=== PATIENT | male | born 1945 | race American Indian/Alaskan Native ===

== ENCOUNTER 2017-05-10 08:47 | Day surgery (SDC) | payer MEDICARE ==
[~2017-05-10 08:47] MED LIST: ANCEF/STERILE WATER 2 GM/20 ML 2 GM/20 ML SYRINGE IV NR; NACL 0.9% 1000 ML 1,000 ML IV SCH
[2017-05-10] MEDS ORDERED: PEPCID IV NR (09:31)
[2017-05-10] MEDS ORDERED: DILAUDID IV PRN (09:32)
[2017-05-10] MEDS ORDERED: NACL BACTERIOSTATIC INFILTRATI ONE (09:38)
[2017-05-10] MEDS ORDERED: NEO SYNEPHRINE/NS Syringe(OR USE) IV ONE (10:00)
[2017-05-10] MEDS ORDERED: ZOFRAN IV PRN (10:00)
[2017-05-10 10:04] LABS: Basophils % (Auto) 1.2 % (0.0-1.8); Eosinophils % (Auto) 7.7 % (0.0-4.3); Hematocrit 36.2 % (35.5-45.6); Hemoglobin 11.7 gm/dl (11.8-15.2); Mean Corpuscular HGB Conc 32 % (32-34); Mean Corpuscular Hemoglobin 29 pg (28-32); Mean Corpuscular Volume 90 fl (84-94); Platelet Count 167 K/mm3 (140-440); Red Blood Count 4.02 M/mm3 (3.65-5.03); Red Cell Distribution Width 19.1 % (13.2-15.2)
[2017-05-10 10:15] LABS: BUN/Creatinine Ratio 6.66; Calcium 7.2 mg/dL (8.4-10.2); Chloride 100.6 mmol/L (98-107); Potassium 4.8 mmol/L (3.6-5.0)
[2017-05-10] MEDS ORDERED: HEPARIN 10,000 UNITS/10 ML ONE (10:31)
[2017-05-10] MEDS ORDERED: MARCAINE 0.5% INFILTRATI ONE ×2 (10:32→11:21)
[2017-05-10] MEDS ORDERED: NACL 0.9% 500 ML 500 ML ONE (10:32)
[2017-05-10] MEDS ORDERED: XYLOCAINE 1%/ EPI 1:100,000 INFILTRATI ONE ×2 (10:33→11:21)
[2017-05-10] MEDS ORDERED: SODIUM BICARBONATE ONE (10:33)
[2017-05-10] MEDS ORDERED: NACL 0.9% 250ML 250 ML ONE (10:34)
--- NOTE | 2017-05-10 10:54 | Anesthesia Consultation ---
Anesthesia Consult and Med Hx Date of service: 05/10/17 - Airway Anesthetic Teeth Evaluation: Edentulous (upper) ROM Head & Neck: Adequate Mental/Hyoid Distance: Adequate Mallampati Class: Class II Intubation Access Assessment: Probably Good - Pulmonary Exam CTA: Yes - Cardiac Exam Cardiac Exam: RRR - Pre-Operative Health Status ASA Pre-Surgery Classification: ASA3 Proposed Anesthetic Plan: General - Pulmonary Hx Smoking: Yes - Cardiovascular System Hx Hypertension: Yes (x 18 yrs) Hx Coronary Artery Disease: Yes Hx Heart Attack/AMI: Yes (2017) Hx Angina: No Hx Percutaneous Transluminal Coronary Angioplasty (PTCA): Yes (2017) Hx Cardia Arrhythmia: Yes (hx afib, junctional) Hx Heart Murmur: Yes - Gastrointestinal Hx Gastroesophageal Reflux Disease: Yes (controlled) - Endocrine Hx End Stage Renal Disease: Yes - Additional Comments Anesthesia Medical History Comments: syncope episode
[2017-05-10] MEDS ORDERED: DIPRIVAN 10 MG/ML IV ONE ×4 (10:56→13:00)
[2017-05-10] MEDS ORDERED: DILAUDID ONE (10:56)
--- NOTE | 2017-05-10 11:00 | Anesthesia Day of Surgery ---
Anesthesia Day of Surgery - Day of Surgery Patient Examined: Yes Patient H&P Reviewed: Yes Patient is NPO: Yes
[2017-05-10] MEDS ORDERED: NACL 0.9% IR ONE (11:21)
[2017-05-10] MEDS ORDERED: SODIUM BICARBONATE IV ONE (11:21)
[2017-05-10] MEDS ORDERED: VERSED ONE (11:46)
[2017-05-10] MEDS ORDERED: HEPARIN 10,000 UNITS/10 ML 1,000 UNIT in NACL 0.9% 250ML 250 ML IR ONE (11:47)
[2017-05-10] MEDS ORDERED: KETALAR ONE (11:52)
[2017-05-10] MEDS ORDERED: XYLOCAINE MPF 2% ONE (12:08)
--- NOTE | 2017-05-10 13:56 | Post Operative Note ---
Pre-op diagnosis: thrombosed avf, ESRD Post-op diagnosis: same Findings: good thrill and bruit in new AVF,palpable radial pulse Procedure: Creation of transposed forearm brachial- basilic AVF, left arm Anesthesia: MAC Surgeon: ANJUM ALVAREZ Estimated blood loss: minimal Pathology: none Condition: stable Disposition: same day
--- NOTE | 2017-05-10 14:00 | Short Stay Summary ---
Short Stay Documentation Date of service: 05/10/17 Narrative H&P: admitted to OR for out patient creation of AVF left larm - History Principal diagnosis: Thrombosed AVF, ESRD on dialysis H&P: obtained from office - Allergies and Medications Current Medications: Allergies codeine Allergy (Verified 05/09/17 10:11) Unknown Home Medications Medication Instructions Recorded Confirmed Last Taken Type Aspirin [Adult Low Dose Aspirin EC] 81 mg PO DAILY 05/09/17 05/10/17 05/09/17 History AtorvaSTATin [Lipitor] 80 mg PO QHS 05/09/17 05/10/17 05/08/17 History Budesoni/Formotero 160-4.5(Nf) 2 puff IH BID 05/09/17 05/10/17 04/05/17 History [Symbicort 160-4.5 (Nf)] Clopidogrel Bisulfate [Plavix] 75 mg PO DAILY 05/09/17 05/10/17 05/09/17 History Furosemide [Lasix TAB] 40 mg PO QDAY 05/09/17 05/10/17 05/09/17 History Losartan [Cozaar] 25 mg PO QDAY 05/09/17 05/10/17 05/09/17 11:30 History Nitroglycerin [Nitrostat] 0.4 mg SL Q5M PRN 05/09/17 05/09/17 Unknown History Pantoprazole [Protonix] 40 mg PO QDAY 05/09/17 05/10/17 05/09/17 History Active Medications Famotidine (Pepcid) 20 mg IV PREOP NR Stop: 05/10/17 15:00 Last Admin: 05/10/17 09:55 Dose: 20 mg Hydromorphone HCl (Dilaudid) 0.25 mg IV Q10MIN PRN PRN Reason: Pain, Moderate (4-6) Stop: 05/10/17 15:00 Cefazolin Sodium (Ancef/Sterile Water 2 Gm/20 Ml) 2 gm in 20 mls @ 80 mls/hr IV PREOP NR PRN Reason: Protocol Stop: 05/10/17 21:00 Sodium Chloride (Nacl 0.9% 1000 Ml) 1,000 mls @ 42 mls/hr IV DIRECT MARY Last Admin: 05/10/17 09:50 Dose: 42 mls/hr - Brief post op/procedure progress note Date of procedure: 05/10/17 Pre-op diagnosis: ESRD Post-op diagnosis: same Procedure: creation of transposed forearm brachial basilic avf, left arm Anesthesia: MAC Findings: good thrill in avf, palpabel radial pulse Estimated blood loss: minimal Pathology: none Condition: stable - Hospital course Hospital course: benign - Disposition Condition at discharge: Good Disposition: DC-01 TO HOME OR SELFCARE - Discharge Diagnoses (1) 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
--- NOTE | 2017-05-10 14:59 | Post Anesthesia Evaluation ---
- Post Anesthesia Evaluation Patient Participated: Yes Airway Patent: Yes Stable Respiratory Function: Yes Nausea/Vomiting: No Temp > 96.8F: Yes Pain Manageable: Yes Adequeate Hydration: Yes Anesthesia Complications: No Block Receding Appropriately: Not Applicable Patient on Ventilator: No
[2017-05-10 19:19] VITALS: BP 140/72
--- NOTE | 2017-05-10 19:32 | Operative Report ---
PREOPERATIVE DIAGNOSES: Thrombosed hemodialysis access fistula, end-stage renal disease requiring hemodialysis. POSTOPERATIVE DIAGNOSES: Thrombosed hemodialysis access fistula, end-stage renal disease requiring hemodialysis. OPERATIVE PROCEDURE: Creation of forearm transposed brachiobasilic AV fistula left arm. SURGEON: Hood Perez M.D. HAND ASSEMBLER FOR PULLER OVER: None. ANESTHESIA: Local MAC. ESTIMATED BLOOD LOSS: Minimal. COMPLICATIONS: None. INSTRUMENT COUNTS: Correct. SPECIMENS: None. IMPLANTS: None. FINDINGS: Adequate inflow via brachial artery. Proximal takeoff of radial artery resulting in protection of hand perfusion. Fistula of good quality with good thrill and bruit. SURGICAL DETAILS: The patient was in supine position with the left arm extended. The entire extremity was then prepped and draped using standard sterile technique. I previously had used the ultrasound and with a tourniquet on the arm had mapped out the course of the cephalic and basilic vein. The cephalic was a suboptimal choice due to size and previous utilization as a fistula. I then anesthetized the skin overlying the brachial artery. It was noted that there was an proximal takeoff of the radial artery and that would protect the hand from steal syndrome. The dissection was carried down sharply through subcutaneous tissue and the proximal forearm through a longitudinal incision made through anesthetized skin. The fascia was incised and the brachial artery was identified and mobilized and encircled using vessel loops. I did identify the radial artery and preserved it. Attention was then turned to the medial aspect of the arm where the basilic vein was located and soft tissue. Skin overlying this was incised longitudinally again through anesthetized skin and dissection was deepened and the vein was mobilized proximally and distally for an appropriate length. I then divided distally and hydro-dilated and confirmed that the vein would be of good quality for fistula. I then created a subcutaneous tunnel between the two incisions after mobilizing the vein proximally to the antecubital fossa. I then tunneled between the two incisions using an angled [place] and brought the vein through in a nonrotational fashion. The distal limb was then prepared as a Carrel patch using a side branch and the length was confirmed. I then occluded the brachial artery and made a generous longitudinal incision. I was able to make a slightly larger incision than normal because of the aberrant takeoff of the radial artery protected the hand from steal. I then created an end-to-side anastomosis using 6-0 Prolene suture in running technique. Prior to completion of the suture line, antegrade and retrograde flushing was performed. The suture line was then released retrograde into the access and then antegrade. The fistula developed a very nice thrill and bruit. Hand perfusion was normal via palpable radial pulse. I then obtained hemostasis using counterpressure and electrocautery. The incisions were blocked with Marcaine 0.5% plain and then the incisions were closed using 3-0 Vicryl subcutaneous and 4-0 Monocryl subcuticular. Skin was sealed with Dermabond. The patient was then returned to the recovery area in stable condition having tolerated the procedure well. Sponge and needle counts were correct. A good thrill and bruit was noted in the fistula. JOB# [id number] SUZAN/ALMA ROSA
== END 2017-05-10 16:00 | disposition home or self-care (01) ==
LOC: OR 08:47
PROVIDERS: ATTEND Surgery Vascular Surgery
DX: T82.868A Thrombosis due to vascular prosthetic devices, implants and grafts, initial encounter (principal); I12.0 Hypertensive chronic kidney disease with stage 5 chronic kidney disease or end stage renal disease; N18.6 End stage renal disease; I25.10 Atherosclerotic heart disease of native coronary artery without angina pectoris; I25.2 Old myocardial infarction; E78.5 Hyperlipidemia, unspecified; I48.91 Unspecified atrial fibrillation; K21.9 Gastro-esophageal reflux disease without esophagitis; F17.200 Nicotine dependence, unspecified, uncomplicated; Z99.2 Dependence on renal dialysis; Z88.5 Allergy status to narcotic agent; Z79.899 Other long term (current) drug therapy; Z79.82 Long term (current) use of aspirin; Z95.5 Presence of coronary angioplasty implant and graft; Z98.890 Other specified postprocedural states; Y83.2 Surgical operation with anastomosis, bypass or graft as the cause of abnormal reaction of the patient, or of later complication, without mention of misadventure at the time of the procedure
CPT/HCPCS: 36415; 36819; 80048; 85025; J0690; J1170; J1644; J2370; J2704; J7030; J7040; J7050; J2250

== ENCOUNTER 2017-08-17 06:24 | Day surgery (SDC) | payer MEDICARE ==
[2017-08-17] MEDS ORDERED: DIPRIVAN 10 MG/ML IV ONE (07:20)
[2017-08-17] MEDS ORDERED: XYLOCAINE MPF 2% ONE (07:20)
[2017-08-17] MEDS ORDERED: SUBLIMAZE ONE (07:20)
[2017-08-17] MEDS ORDERED: ZOFRAN ONE (07:20)
[2017-08-17] MEDS ORDERED: NACL BACTERIOSTATIC INFILTRATI ONE (07:30)
[2017-08-17] MEDS ORDERED: PROVENTIL IH NR (08:00)
--- NOTE | 2017-08-17 08:04 | Anesthesia Consultation ---
Anesthesia Consult and Med Hx - Airway Anesthetic Teeth Evaluation: Dentures ROM Head & Neck: Adequate Mental/Hyoid Distance: Adequate Mallampati Class: Class II Intubation Access Assessment: Probably Good - Pulmonary Exam CTA: No (exp wheeze, txt ordered ) - Cardiac Exam Cardiac Exam: RRR - Pre-Operative Health Status ASA Pre-Surgery Classification: ASA4 Proposed Anesthetic Plan: General, MAC - Pulmonary Hx Smoking: Yes COPD: Yes - Cardiovascular System Hx Hypertension: Yes (x 18 yrs) Hx Coronary Artery Disease: Yes Hx Heart Attack/AMI: Yes (2017) Hx Angina: No Hx Percutaneous Transluminal Coronary Angioplasty (PTCA): Yes (2017) Hx Cardia Arrhythmia: Yes (hx afib, junctional) Hx Heart Murmur: Yes - Gastrointestinal Hx Gastroesophageal Reflux Disease: Yes (controlled) - Endocrine Hx End Stage Renal Disease: Yes
[2017-08-17] MEDS ORDERED: PROVENTIL IH ONE (08:05)
--- NOTE | 2017-08-17 08:05 | Anesthesia Day of Surgery ---
Anesthesia Day of Surgery - Day of Surgery Patient Examined: Yes Patient H&P Reviewed: Yes Patient is NPO: Yes
[2017-08-17] MEDS ORDERED: NACL 0.9% 500 ML 500 ML ONE (08:10)
[2017-08-17] MEDS ORDERED: HEPARIN 10,000 UNITS/10 ML ONE (08:10)
[2017-08-17] MEDS ORDERED: MARCAINE 0.5% 30 ML INFILTRATI ONE (08:10)
[2017-08-17 08:19] LABS: Eosinophils % (Auto) 8.3 % (0.0-4.3); Hematocrit 36.8 % (35.5-45.6); Hemoglobin 12.2 gm/dl (11.8-15.2); Mean Corpuscular HGB Conc 33 % (32-34); Mean Corpuscular Hemoglobin 29 pg (28-32); Mean Corpuscular Volume 89 fl (84-94); Platelet Count 170 K/mm3 (140-440); Red Blood Count 4.15 M/mm3 (3.65-5.03); Red Cell Distribution Width 19.5 % (13.2-15.2); White Blood Count 9.8 K/mm3 (4.5-11.0)
[2017-08-17 08:29] LABS: Calcium 8.9 mg/dL (8.4-10.2); INR 0.96 (0.87-1.13); Potassium 4.5 mmol/L (3.6-5.0)
[2017-08-17] MEDS ORDERED: MORPHINE IV PRN (08:30)
[2017-08-17] MEDS ORDERED: ePHEDrine SULFATE ONE (08:54)
[2017-08-17] MEDS ORDERED: HEPARIN 10,000 UNITS/10 ML 2,000 UNIT in NACL 0.9% 500 ML 500 ML IR ONE (09:06)
[2017-08-17] MEDS ORDERED: XYLOCAINE 1%/ EPI 1:100,000 INFILTRATI ONE ×2 (09:34)
[2017-08-17] MEDS ORDERED: NACL 0.9% IR ONE (09:34)
[2017-08-17] MEDS ORDERED: MARCAINE 0.5% INFILTRATI ONE ×2 (09:34)
--- NOTE | 2017-08-17 11:37 | Operative Report ---
Operative Report Operative Report: Date of procedure: 08/17/2017 Pre-operative diagnosis: Mechanical complication of hemodialysis access ( AV fistula), end-stage renal disease on hemodialysis Post-operative diagnosis: Same Procedure name(s): ReVision of brachial basilic AV fistula left arm using elevation technique Surgeon: Hood Perez MD Locator Specialist: None Anesthesia: [General EBL: Minimal Specimen(s): None Complications: None Findings: Good Caliber AV fistula excellent thrill and bruit and fistula Procedure: Patient in the supine position with the left arm extended the entire extremity is prepped and draped using sterile technique. The AV fistula was easily palpable at the antecubital fossa. I made a longitudinal incision overlying the basilic vein just above the antecubital fossa and extended sequentially to the axilla. The incision was deepened until the basilic vein was identified. Care was taken to identify and preserve the muscular cutaneous nerve throughout its entire length. Once the vein was mobilized to the level of the axilla it was encircled using vessel loops it was retracted upward and freed from its vascular base. Side branches were ligated using 3-0 silk ties. The vein was then divided after vascular control was obtained using the beveled technique. I then removed the upper portion of the vessel from underneath the nerves flushed and dilated it with saline. A curved Dana-Wick tunneling device was then used to create the subdermal tunnel. The fistula was then attached to the tunneler and pulled back into the antecubital fossa portion of the incision in a non-rotational fashion. The vessel was then reanastomosed end to end using 6-0 Prolene suture. Prior to completion of the suture line antegrade and retrograde flushing was performed. The suture line was then completed and flow was released back to the fistula. The fistula developed an excellent thrill and bruit. Hemostasis was excellent. The incision was then blocked with Marcaine. The incision was then closed using 3-0 Vicryl subcutaneous 4-0 Monocryl subcuticular. The skin was then sealed using Dermabond equivalent. Patient was then extubated returned to the recovery room in stable condition having tolerated the procedure well. Sponge and needle counts were correct.
--- NOTE | 2017-08-17 11:44 | Short Stay Summary ---
Short Stay Documentation Date of service: 08/17/17 Narrative H&P: Patient admitted to the operative suite for outpatient revision of a brachial basilic fistula in the left arm - History H&P: obtained from office - Allergies and Medications Current Medications: Allergies codeine Allergy (Verified 08/14/17 08:16) Unknown Home Medications Medication Instructions Recorded Confirmed Last Taken Type Aspirin [Adult Low Dose Aspirin EC] 81 mg PO DAILY 05/09/17 08/14/17 05/09/17 History AtorvaSTATin [Lipitor] 80 mg PO QHS 05/09/17 08/14/17 05/08/17 History Budesoni/Formotero 160-4.5(Nf) 2 puff IH BID 05/09/17 08/14/17 04/05/17 History [Symbicort 160-4.5 (Nf)] Clopidogrel Bisulfate [Plavix] 75 mg PO DAILY 05/09/17 08/14/17 05/09/17 History Furosemide [Lasix TAB] 40 mg PO QDAY 05/09/17 08/14/17 05/09/17 History Losartan [Cozaar] 25 mg PO QDAY 05/09/17 08/14/17 05/09/17 11:30 History Nitroglycerin [Nitrostat] 0.4 mg SL Q5M PRN 05/09/17 08/14/17 Unknown History Pantoprazole [Protonix TAB] 40 mg PO QDAY 05/09/17 08/14/17 05/09/17 History HYDROcodone/APAP 7.5-325 [[place] 1 each PO Q6HR PRN #30 tablet 05/10/17 08/14/17 Unknown Rx 7.5-325 mg TAB] Active Medications Albuterol (Proventil) 2.5 mg IH PREOP NR Stop: 08/17/17 17:00 Last Admin: 08/17/17 08:06 Dose: 2.5 mg Cefazolin Sodium (Ancef/Sterile Water 2 Gm/20 Ml) 2 gm in 20 mls @ 80 mls/hr IV PREOP NR PRN Reason: Protocol Stop: 08/17/17 23:59 Sodium Chloride (Nacl 0.9% 1000 Ml) 1,000 mls @ 42 mls/hr IV DIRECT MARY Last Admin: 08/17/17 07:50 Dose: 42 mls/hr Morphine Sulfate (Morphine) 2 mg IV Q10MIN PRN PRN Reason: Pain, Moderate (4-6) Stop: 08/17/17 15:00 - Brief post op/procedure progress note Date of procedure: 08/17/17 Procedure: Pre-operative diagnosis: Mechanical complication of hemodialysis access ( AV fistula), end-stage renal disease on hemodialysis Post-operative diagnosis: Same Procedure name(s): ReVision of brachial basilic AV fistula left arm using elevation technique Surgeon: Hood Perez MD Core Java Software Engineer: None Anesthesia: [General EBL: Minimal Specimen(s): None Complications: None Findings: Good Caliber AV fistula excellent thrill and bruit and fistula Procedure: Patient in the supine position with the left arm extended the entire extremity is prepped and draped using sterile technique. The AV fistula was easily palpable at the antecubital fossa. I made a longitudinal incision overlying the basilic vein just above the antecubital fossa and extended sequentially to the axilla. The incision was deepened until the basilic vein was identified. Care was taken to identify and preserve the muscular cutaneous nerve throughout its entire length. Once the vein was mobilized to the level of the axilla it was encircled using vessel loops it was retracted upward and freed from its vascular base. Side branches were ligated using 3-0 silk ties. The vein was then divided after vascular control was obtained using the beveled technique. I then removed the upper portion of the vessel from underneath the nerves flushed and dilated it with saline. A curved Dana-Wick tunneling device was then used to create the subdermal tunnel. The fistula was then attached to the tunneler and pulled back into the antecubital fossa portion of the incision in a non-rotational fashion. The vessel was then reanastomosed end to end using 6-0 Prolene suture. Prior to completion of the suture line antegrade and retrograde flushing was performed. The suture line was then completed and flow was released back to the fistula. The fistula developed an excellent thrill and bruit. Hemostasis was excellent. The incision was then blocked with Marcaine. The incision was then closed using 3-0 Vicryl subcutaneous 4-0 Monocryl subcuticular. The skin was then sealed using Dermabond equivalent. Patient was then extubated returned to the recovery room in stable condition having tolerated the procedure well. Sponge and needle counts were correct. Estimated blood loss: minimal Pathology: none Condition: stable - Hospital course Hospital course: Benign postoperative course. Small hematoma in the mid humeral region enlarging. Intraoperative duplex scan showed it to be not a flow limiting collection and not a pseudoaneurysm. Anticipate resolution. 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
[2017-08-17 12:32] VITALS: BP 126/53
--- NOTE | 2017-08-17 13:20 | Post Anesthesia Evaluation ---
- Post Anesthesia Evaluation Patient Participated: Yes Airway Patent: Yes Stable Respiratory Function: Yes Nausea/Vomiting: No Temp > 96.8F: Yes Pain Manageable: Yes Adequeate Hydration: Yes Anesthesia Complications: No
== END 2017-08-17 06:25 | disposition home or self-care (01) ==
LOC: OR 06:24
PROVIDERS: ATTEND Surgery Vascular Surgery
DX: T82.590A Other mechanical complication of surgically created arteriovenous fistula, initial encounter (principal); I12.0 Hypertensive chronic kidney disease with stage 5 chronic kidney disease or end stage renal disease; N18.6 End stage renal disease; E78.5 Hyperlipidemia, unspecified; I25.10 Atherosclerotic heart disease of native coronary artery without angina pectoris; K21.9 Gastro-esophageal reflux disease without esophagitis; M19.90 Unspecified osteoarthritis, unspecified site; M10.9 Gout, unspecified; J44.9 Chronic obstructive pulmonary disease, unspecified; I25.2 Old myocardial infarction; I48.91 Unspecified atrial fibrillation; Z95.5 Presence of coronary angioplasty implant and graft; Z98.61 Coronary angioplasty status; Z98.890 Other specified postprocedural states; Z87.891 Personal history of nicotine dependence; Z88.5 Allergy status to narcotic agent; Z79.02 Long term (current) use of antithrombotics/antiplatelets; Z79.899 Other long term (current) drug therapy; Z79.82 Long term (current) use of aspirin; Y83.8 Other surgical procedures as the cause of abnormal reaction of the patient, or of later complication, without mention of misadventure at the time of the procedure
CPT/HCPCS: 36415; 36832; 80048; 82962; 85025; 85610; J0690; J1644; J2405; J2704; J3010; J7030; J7040

== ENCOUNTER 2018-01-01 13:00 | Day surgery (SDC) | payer MEDICARE ==
[2018-01-01] MEDS ORDERED: HEPARIN/NS 5000 UNIT/500ML(CATH LAB) 1,000 ML IR ONE (15:17)
[2018-01-01] MEDS ORDERED: HEPARIN 10,000 UNITS/10 ML ONE (15:17)
[2018-01-01] MEDS ORDERED: ANCEF/STERILE WATER 2 GM/20 ML 2 GM/20 ML SYRINGE IV ONE (15:18)
[2018-01-01] MEDS ORDERED: NACL 0.9% 250ML 250 ML ONE (15:18)
[2018-01-01] MEDS: VERSED ONE ×2 (15:28→15:58)
[2018-01-01] MEDS: SUBLIMAZE ONE ×2 (15:28→15:43)
[2018-01-01] MEDS: XYLOCAINE 2% INFILTRATI ONE ×2 (15:29→15:53)
--- NOTE | 2018-01-01 16:17 | Operative Report ---
Operative Report Operative Report: Procedure: 1. Ultrasound-guided access of a left upper extremity AV fistula towards the central circulation 2. Ultrasound-guided access of an AV fistula towards the arterial anastomosis 3. Balloon angioplasty of the midportion of the left upper extremity AV fistula 4. Balloon angioplasty of the perianastomotic and anastomotic region Date: 01/01/2018 Physician: Indication: 72-year-old male with end-stage renal disease in her left upper extremity AV fistula, reportedly having trouble getting good flow and pulling out clots in dialysis on Monday Technique: The patient was placed in the supine position and prepped and draped in the usual sterile fashion. A timeout was performed. Local anesthetic was administered. Under ultrasound guidance, a 21-gauge needle was advanced into the fistula towards the central circulation. This was exchanged via a micropuncture technique for a 6 [place] vascular sheath. Through this sheath, the combination of a Ferguson wire and 4 [place] vertebral catheter was used to access the central circulation. Central venography was performed. Fistulagraphy of the remainder of the fistula was performed. Thereafter, a 7 x 200 mm balloon was used to treat 2 regions of narrowing in the midportion of the fistula. Using a 4-0 Vicryl suture as hemostasis, the centrally directed sheath was removed. In a similar fashion as above, this sheath was replaced, but this time towards the anastomosis. Using the Ferguson wire, the 4 [place] vertebral catheter was maneuvered into the brachial artery. Arteriography was performed. A 4 mm x 80 mm balloon was used to treat anastomotic narrowing and several small regions of perianastomotic narrowing. Completion angiography was performed. A 3-0 Vicryl suture was used for hemostasis. Findings: There is a 90% stenosis of the midportion of the fistula. This was reduced to approximately 30% with balloon angioplasty. There were varying region to stenosis at the polly anastomotic region of the fistula, up to 80%, these were reduced to between 30 and 40% after balloon angioplasty. Completion fistulagraphy demonstrates excellent flow with rapid clearance of contrast centrally.
[2018-01-01 17:02] VITALS: BP 150/75
== END 2018-01-01 17:05 | disposition home or self-care (01) ==
LOC: CATHLABREC 13:00
PROVIDERS: ATTEND Radiology Diagnostic Radiology
DX: T82.858A Stenosis of other vascular prosthetic devices, implants and grafts, initial encounter (principal); Y83.8 Other surgical procedures as the cause of abnormal reaction of the patient, or of later complication, without mention of misadventure at the time of the procedure; N18.6 End stage renal disease
CPT/HCPCS: 36415; 36902; 82565; 84132; 84520; C1725; C1751; C1769; C1894; J0690; J1644; J2250; J3010; J7050; Q9967

== ENCOUNTER 2018-03-15 10:38 | Day surgery (SDC) | payer MEDICARE ==
[2018-03-15 11:56] LABS: INR 0.91 (0.87-1.13)
[2018-03-15 11:57] LABS: Partial Thromboplastin Time 32.5 Sec. (24.2-36.6)
[2018-03-15] MEDS ORDERED: ANCEF/STERILE WATER 2 GM/20 ML 2 GM/20 ML SYRINGE IV NR (12:00)
[2018-03-15] MEDS ORDERED: XYLOCAINE 1%/ EPI 1:100,000 INFILTRATI ONE (15:59)
[2018-03-15] MEDS ORDERED: HEPARIN/NS 5000 UNIT/500ML(CATH LAB) 1,000 ML IR ONE (15:59)
[2018-03-15] MEDS ORDERED: HEPARIN 10,000 UNITS/10 ML ONE (16:00)
[2018-03-15] MEDS ORDERED: ANCEF/STERILE WATER 2 GM/20 ML 2 GM/20 ML SYRINGE IV ONE (16:00)
[2018-03-15] MEDS ORDERED: CATHFLO ONE (16:26)
[2018-03-15] MEDS ORDERED: WATER FOR INJ (PF) ONE (16:26)
[2018-03-15] MEDS: SUBLIMAZE ONE ×2 (16:31→17:06)
[2018-03-15] MEDS: VERSED ONE ×2 (16:32→17:06)
--- NOTE | 2018-03-15 17:49 | Short Stay Summary ---
Short Stay Documentation Date of service: 03/15/18 Narrative H&P: 72 year old male with ESRD with thrombosed LUE AVF. - History Principal diagnosis: thrombosed AVF Past Medical History: dialysis, ESRD Past Surgical History: Other (left UE AVF creation) - Allergies and Medications Current Medications: Allergies codeine Allergy (Verified 03/15/18 11:04) Unknown Home Medications Medication Instructions Recorded Confirmed Last Taken Type RX: Aspirin [Adult Low Dose 81 mg PO DAILY 05/09/17 03/15/18 03/14/18 History Aspirin EC] RX: AtorvaSTATin [Lipitor] 80 mg PO QHS 05/09/17 03/15/18 03/14/18 History RX: Clopidogrel Bisulfate [Plavix] 75 mg PO DAILY 05/09/17 03/15/18 03/14/18 History RX: Furosemide [Lasix TAB] 40 mg PO QDAY 05/09/17 03/15/18 03/14/18 History RX: Losartan [Cozaar] 25 mg PO QDAY 05/09/17 03/15/18 03/14/18 History RX: Pantoprazole [Protonix TAB] 40 mg PO QDAY 05/09/17 03/15/18 03/14/18 History RX: Carvedilol [Coreg] 3.125 mg PO BID 03/15/18 03/15/18 03/14/18 History - Physical exam General appearance: no acute distress Lungs: Normal air movement Gastrointestinal: normal Extremities: abnormal (AVF without pulse or thrill) - Brief post op/procedure progress note Date of procedure: 03/15/18 Pre-op diagnosis: Left thrombosed AVF Post-op diagnosis: same Procedure: Thrombectomy and angioplasty of the dialysis access Anesthesia: local (w/ conscious sedation) Surgeon: KARYNA JUARES Estimated blood loss: minimal Condition: stable - Hospital course Hospital course: Patient tolerated procedure well. No issues. - Disposition Condition at discharge: Stable Disposition: DC-01 TO HOME OR SELFCARE - Discharge Diagnoses (1) Arteriovenous fistula thrombosis Status: Acute Short Stay Discharge Plan Activity: advance as tolerated Weight Bearing Status: Weight Bear as Tolerated Diet: renal Wound: keep clean and dry Follow up with: PRIMARY CARE, [Primary Care Provider] - 7 Days
[2018-03-15 18:17] VITALS: BP 151/42
--- NOTE | 2018-03-15 18:21 | Operative Report ---
Operative Report Operative Report: EXAM: 1. Ultrasound-guided access of the AV fistula towards the anastomosis 2. Selection of the brachial artery in a retrograde fashion with angiography of the left upper extremity and fistulogram 3. Percutaneous mechanical thrombectomy of the peripheral AVF 4. Angioplasty of the anastomosis, perianastomotic region, and peripheral and mid basilic vein with a 6 mm x 120 mm angioplasty ballon 5. Cutting angioplasty balloon of the anastomosis with a 5 mm x 20 mm angioplasty balloon with postdilatation with a 6 mm x 40 mm angioplasty balloon 6. Ultrasound-guided access of the AV fistula towards the venous outflow 7. Angioplasty of the subclavian vein with a 12 mm x 60 mm angioplasty balloon 8. Angioplasty of the central basilic vein and mid basilic vein with a 7 mm x 200 mm angioplasty balloon 9. Repeat angioplasty of the peripheral basilic vein with a 6 mm x 40 mm angioplasty balloon INDICATION: THROMBOSED LEFT ARM AV BRACHIO-BASILIC FISTULA WITH END-STAGE RENAL DISEASE. DATE: 03/15/18 MEDICATIONS: Please refer to nursing documentation for complete list of medications and heparin administration. VERSED AND FENTANYL TITRATED TO MODERATE SEDATION. THE PATIENT WAS MONITORED UNDER CONTINUOUS CARDIOPULMONARY MONITORING THROUGHOUT THE CASE. COMPLICATIONS: NONE IMMEDIATE GASOLINE ENGINE INSPECTOR: KARYNA JUARES MD PROCEDURE: The procedure was discussed with the patient and the risks, benefits, and alternatives were discussed with the patient. Informed consent was obtained. The patient was transported into the angiography suite in stable condition and placed on the angiographic table. The left arm was assessed under real-time ultrasound which demonstrated a peripherally thrombosed left arm AV fistula with the mid and distal portion narrowed but still with flow. The patient was prepped and draped in a sterile fashion. Lidocaine was used to anesthetize the skin. Under ultrasound guidance, the AV graft was punctured with the needle pointing towards the anastamosis. 0.018 inch wire was advanced through the needle and exchanged for transitional dilator. The inner dilator and wire were removed and a 0.035 inch Glidewire wire was advanced to the transitional dilator into the brachial artery in a retrograde fashion. The dilator was exchanged for 6 [place] short sheath. The angled catheter was advanced over the 0.035 wire and the wire was advanced into the [place] brachial artery in a retrograde fashion. Digital subtraction angiography was performed demonstrating patency of the brachial artery proximal and distal to the anastomosis with occlusion of the AV fistula and no significant flow in the AV fistula. Percutaneous mechanical thrombectomy was performed of the peripheral portion of the AV fistula. Angioplasty was then performed using a 6 mm x 120 mm angioplasty balloon from the arterial anastomosis to the venous sheath at high pressure. There is a residual waist at the arterial anastomosis. Digital subtraction angiography was performed demonstrating resolution of the thrombus with residual high-grade narrowing at the arterial anastomosis with flow in the rest of the AV fistula. There was a moderate stenosis in the basilic vein centrally. There was mild stenosis of the left subclavian vein. The rest of the central veins were patent. Wire was exchanged for a V18. Balloon was exchanged for a cutting angioplasty balloon use perform angioplasty at the arterial anastomosis. This was then exchanged for a 6 mm x 40 mm angioplasty balloon use perform angioplasty at the arterial anastomosis. Repeat digital subtraction angiography only demonstrated mild residual narrowing. Lidocaine was used to anesthetize the skin. Under ultrasound guidance, the AV graft was punctured with the needle pointing towards the venous limb. 0.018 inch wire was advanced through the needle and this was exchanged for a transitional dilator. The inner dilator and wire were removed and a 0.035 inch Ferguson wire was advanced through the transitional dilator. The dilator was exchanged for a 7 [place] short sheath. 12 mm x 60 mm angioplasty balloon was used to perform angioplasty of the left subclavian vein. 7 mm x 200 mm angioplasty balloon was then used to perform angioplasty of the basilic vein. Digital subtraction angiography demonstrated only mild residual narrowing of the basilic vein with no residual narrowing of the left subclavian vein. Digital subtraction angiography was then performed in the brachial artery and a retrograde fashion demonstrating mild residual narrowing at the arterial anastomosis, but moderate narrowing at the site of the newly placed sheath towards the venous outflow with a small amount clot at this area. The rest of the fistula had only mild residual narrowing within it at the central portion of the basilic vein. The venous outflow was patent. 6 mg by 40 mm angioplasty balloon was used to perform angioplasty at the site of the venous sheath. Repeat angiography demonstrated resolution of the narrowing with no residual thrombus. All the wires were removed. 3-0 Vicryl sutures were used to close the fistula access sites. Dermabond was applied. Pressure was held until hemostasis was achieved. The patient was then transferred to the outpatient recovery area. FINDINGS: Please see the procedure note for the findings. IMPRESSION: 1. Successful mechanical thrombectomy of the thrombosed left AV fistula. 2. Successful angioplasty of the central dialysis access and successful angioplasty of the peripheral dialysis access.
== END 2018-03-15 18:20 | disposition home or self-care (01) ==
LOC: CATHLABREC 10:38 → CATH 10:38 → CATHLABREC 18:20
PROVIDERS: ATTEND Radiology Diagnostic Radiology
DX: T82.868A Thrombosis due to vascular prosthetic devices, implants and grafts, initial encounter (principal); Z88.5 Allergy status to narcotic agent; Y83.2 Surgical operation with anastomosis, bypass or graft as the cause of abnormal reaction of the patient, or of later complication, without mention of misadventure at the time of the procedure; Z79.82 Long term (current) use of aspirin; Z79.899 Other long term (current) drug therapy; Z79.01 Long term (current) use of anticoagulants
CPT/HCPCS: 36415; 36905; 36907; 84132; 85610; 85730; C1725; C1751; C1769; C1894; J0690; J1644; J2250; J3010; 36902; J2997; Q9967